=== PATIENT | male | born 1970 | race Caucasian/White ===

== ENCOUNTER 2017-04-14 11:37 | Emergency (ER) | payer OTHER ==
[~2017-04-14] VITALS: Ht 172.7 cm; Wt 96.8 kg
[~2017-04-14 11:37] MED LIST: KEFLEX500 MG PO; ULTRAM50 MG PO
[2017-04-14] MEDS ORDERED: CRESTOR20 MG PO (12:05)
[2017-04-14] MEDS ORDERED: GLUCOTROL10 MG PO (12:06)
[2017-04-14] MEDS ORDERED: ZESTRIL5 MG PO (12:06)
[2017-04-14] MEDS ORDERED: GABAPENTIN600 MG PO (12:07)
[2017-04-14] MEDS ORDERED: TOPROL XL100 MG PO (12:07)
[2017-04-14] MEDS ORDERED: WARFARIN SODIUM5 MG PO (12:08)
[2017-04-14] MEDS ORDERED: COUMADIN7.5 MG PO (12:09)
[2017-04-14] MEDS ORDERED: PRILOSEC20 MG PO (12:10)
[2017-04-14] MEDS ORDERED: LANTUS 10100 UNITS/ SC (12:11)
[2017-04-14] MEDS ORDERED: SYNTHROID25 MCG PO (12:14)
[2017-04-14] MEDS ORDERED: NOVOLOG100 UNIT/1 SC (12:14)
[2017-04-14] MEDS ORDERED: LIDODERM 5% P1 PATCH TD (13:24)
[2017-04-14] MEDS ORDERED: VALIUM5 MG PO (13:24)
[2017-04-14 14:11] VITALS: BP 130/85
== END 2017-04-14 14:26 | disposition home or self-care (01) ==
LOC: EME 11:37
DX: S39.012A Strain of muscle, fascia and tendon of lower back, initial encounter (principal); S76.012A Strain of muscle, fascia and tendon of left hip, initial encounter; M54.16 Radiculopathy, lumbar region; M54.42 Lumbago with sciatica, left side; I10 Essential (primary) hypertension; E11.9 Type 2 diabetes mellitus without complications; G47.30 Sleep apnea, unspecified; Z89.511 Acquired absence of right leg below knee; Z79.01 Long term (current) use of anticoagulants; Z87.891 Personal history of nicotine dependence
CPT/HCPCS: 72070; 72100; 73502; 99281; 99284; J1885

== ENCOUNTER 2018-01-06 17:44 | Observation (INO) | payer OTHER ==
[~2018-01-06] VITALS: Ht 172.7 cm; Wt 94.9 kg
[~2018-01-06 17:44] MED LIST changes: +COUMADIN7.5 MG PO; +CRESTOR20 MG PO; +GABAPENTIN600 MG PO; +GLUCOTROL10 MG PO; +LANTUS 10100 UNITS/ SC; +LIDODERM 5% P1 PATCH TD; +NOVOLOG100 UNIT/1 SC; +PRILOSEC20 MG PO; +SYNTHROID25 MCG PO; +TOPROL XL100 MG PO; +VALIUM5 MG PO; +WARFARIN SODIUM5 MG PO; +ZESTRIL5 MG PO
[2018-01-06 19:12] LABS: HEMOGLOBIN 15.8 G/DL (12.5-16.6); MCH 26.9 PG (29.0-34.0); MCHC 33.6 G/DL (30.0-36.0); MCV 79.9 FL (86-99); PLATELET COUNT 254 K/uL (156-360); RBC DIS.WIDTH-CV 13.3 % (11.8-14.6); RBC DIS.WIDTH-SD 38.6 % (39-53); RED BLOOD COUNT 5.88 M/uL (4.00-5.50); WHITE BLOOD COUNT 9.4 K/uL (4.1-10.2)
[2018-01-06 19:41] LABS: INTER. NORMALIZED RATIO 3.1
[2018-01-06 20:46] LABS: ALBUMIN 4.4 G/DL (3.2-4.8); CHLORIDE 103 MEQ/L (99-109); DIRECT BILIRUBIN 0.1 mg/dL (0.0-0.3); POTASSIUM 4.4 MEQ/L (3.7-5.4); SODIUM 140 MEQ/L (136-147); TOTAL BILIRUBIN 0.3 MG/DL (0.0-1.0)
[2018-01-06 20:52] LABS: ALKALINE PHOSPHATASE 81 IU/L (3-129); ALT (GPT) 21 IU/L (3-49); AST (GOT) 23 IU/L (2-34); CREATININE 0.8 MG/DL (0.6-1.3); GFR ESTIMATE (CALCULATED) > 59 mL/min/ (58.99-99999); GLUCOSE 106 mg/dL (70-99); UREA NITROGEN (BUN) 17 mg/dL (9-23)
[2018-01-06] MEDS ORDERED: COUMADIN4 MG PO ×2 (22:27)
[2018-01-06] MEDS ORDERED: PERCOCET 5/31 TABLET PO (22:28)
[2018-01-06] MEDS ORDERED: SYNTHROID175 MCG PO (22:28)
[2018-01-06] MEDS ORDERED: LIDODERM 5% P1 PATCH TD (22:28)
[2018-01-06] MEDS ORDERED: BENADRYL ALLERG25 MG PO (22:29)
[2018-01-06] MEDS ORDERED: VITAMIN D31000 UNI2 PO (22:29)
[2018-01-06] MEDS ORDERED: B-121000 MC2 PO (22:29)
[2018-01-06] MEDS ORDERED: TYLENOL ARTHRI650 MG PO (22:30)
[2018-01-07 01:00] LABS: HEMATOCRIT 45.6 % (38.0-50.0); HEMOGLOBIN 15.2 G/DL (12.5-16.6); MCV 80.6 FL (86-99)
[2018-01-07 01:52] VITALS: BP 130/74
[2018-01-07 04:35] VITALS: BP 136/70
[2018-01-07 06:24] LABS: HEMATOCRIT 46.3 % (38.0-50.0); MCV 80.8 FL (86-99)
[2018-01-07 06:28] LABS: INTER. NORMALIZED RATIO 3.1
[2018-01-07 06:48] LABS: CHLORIDE 106 MEQ/L (99-109); CREATININE 0.7 MG/DL (0.6-1.3); GFR ESTIMATE (CALCULATED) > 59 mL/min/ (58.99-99999); GLUCOSE 89 mg/dL (70-99); POTASSIUM 4.2 MEQ/L (3.7-5.4); SODIUM 141 MEQ/L (136-147); UREA NITROGEN (BUN) 20 mg/dL (9-23)
[2018-01-07 07:26] VITALS: BP 125/61
[2018-01-07 11:27] VITALS: BP 144/74
[2018-01-07 13:56] LABS: HEMATOCRIT 47.6 % (38.0-50.0); HEMOGLOBIN 15.4 G/DL (12.5-16.6); MCV 80.1 FL (86-99)
[2018-01-07 15:16] VITALS: BP 137/80
[2018-01-09 13:44] LABS: STOOL OCCULT BLD 1ST SPECIMEN POSITIVE
== END 2018-01-07 17:05 | disposition home or self-care (01) ==
LOC: EME 17:44 → EDOF 23:26 → 2EAST 23:26 → ENRESERV 23:39 → CANRESERV 23:39 → ENRESERV 01-07 00:25 → 2EAST 01-07 01:42
PROVIDERS: Hospitalist; Physician Assistant
DX: K62.5 Hemorrhage of anus and rectum (principal); E11.9 Type 2 diabetes mellitus without complications; E03.9 Hypothyroidism, unspecified; I10 Essential (primary) hypertension; G47.33 Obstructive sleep apnea (adult) (pediatric); G89.29 Other chronic pain; M54.9 Dorsalgia, unspecified; Z86.718 Personal history of other venous thrombosis and embolism; Z79.01 Long term (current) use of anticoagulants; Z89.511 Acquired absence of right leg below knee; Z87.891 Personal history of nicotine dependence; Z79.4 Long term (current) use of insulin
CPT/HCPCS: 74177; 80048; 80076; 82272; 82948; 85014; 85018; 85027; 85610; 86850; 86900; 86901; 99281; 99284; G0378; J7030

== ENCOUNTER → 2018-01-31 | Outpatient (CLI) | payer OTHER ==
[~2018-01-31] MED LIST changes: +B-121000 MC2 PO; +BENADRYL ALLERG25 MG PO; +COUMADIN4 MG PO; +PERCOCET 5/31 TABLET PO; +SYNTHROID175 MCG PO; +TYLENOL ARTHRI650 MG PO; +VITAMIN D31000 UNI2 PO
[2018-01-31 16:23] LABS: INTER. NORMALIZED RATIO 1.2
== END | disposition home or self-care (01) ==
LOC: LAB 14:23
PROVIDERS: Internal Medicine Gastroenterology
DX: K92.1 Melena (principal)
CPT/HCPCS: 85610